=== PATIENT | female | born 1970 | race Caucasian/White ===

== ENCOUNTER 2016-10-01 05:48 | Day surgery (SDC) | payer OTHER ==
[~2016-10-01] VITALS: Ht 154.9 cm; Wt 67.6 kg
[~2016-10-01 05:48] MED LIST: Ecotrin PO; Protonix PO; VITAMIN B CO1 TABLET PO
[2016-10-01 06:50] VITALS: BP 144/70
[2016-10-01 08:40] VITALS: BP 116/63
[2016-10-01 09:29] VITALS: BP 133/60
== END 2016-10-01 09:40 | disposition home or self-care (01) ==
LOC: SDC 05:48 → 2SOUTH 15:49 → EDSTATUS 15:49 → SDC 15:50
DX: N95.0 Postmenopausal bleeding (principal); N84.0 Polyp of corpus uteri; N88.2 Stricture and stenosis of cervix uteri; E78.5 Hyperlipidemia, unspecified; F17.200 Nicotine dependence, unspecified, uncomplicated; Z82.49 Family history of ischemic heart disease and other diseases of the circulatory system; Z80.0 Family history of malignant neoplasm of digestive organs; Z83.3 Family history of diabetes mellitus; Z82.5 Family history of asthma and other chronic lower respiratory diseases; Z80.8 Family history of malignant neoplasm of other organs or systems; Z88.1 Allergy status to other antibiotic agents
CPT/HCPCS: 88305; J0131; J0690; J1100; J1885; J2250; J2405; J3010

== ENCOUNTER 2017-10-27 18:49 | Emergency (ER) | payer OTHER ==
[~2017-10-27] VITALS: Ht 154.9 cm; Wt 74.5 kg
[2017-10-27 23:00] VITALS: BP 154/94
== END 2017-10-28 00:41 | disposition home or self-care (01) ==
LOC: EME 18:49
DX: M71.22 Synovial cyst of popliteal space [Baker], left knee (principal); Z88.0 Allergy status to penicillin; Z88.1 Allergy status to other antibiotic agents; Z88.8 Allergy status to other drugs, medicaments and biological substances
CPT/HCPCS: 73564; 93971; 99281; 99283